=== PATIENT | female | born 2005 | race Caucasian/White ===

== ENCOUNTER 2023-03-24 15:11 | Emergency (ER) | payer BC, SELFPAY ==
--- NOTE | ~2023-03-24 | CT_ITS ---
EXAMINATION: CT abdomen pelvis w con DATE: 03/24/2023 18:43 INDICATION: Right lower quadrant abdominal tenderness. TECHNIQUE: Computed tomography (CT) of the abdomen and pelvis was performed with 100 mL Omnipaque 350 intravenous contrast. Automated exposure control and iterative reconstruction technique were employe d. The dose-length product was 207.03 mGy-cm. COMPARISON: None. FINDINGS: The visualized portions of the lung bases are clear without pneumonia or pleural effusion. The heart size is normal. No pericardial effusion. The liver, gallbladder, spleen, pancreas, adrenal glands, and kidneys are normal. There is a 3.7 cm mass in right ovary measuring greater than simple f luid in attenuation. There are no dilated loops of bowel. The appendix is normal. There are no pathol ogically enlarged lymph nodes. There is physiologic fluid in the pelvis. There is thoracolumbar levos coliosis. IMPRESSION: 1. 3.7 cm mass in right ovary, likely a hemorrhagic cyst. Consider ultrasound. Reviewed, dictated and finalized at location E.
[2023-03-24 15:30] VITALS: BP 100/58; PULSE 68; RESP 16; TEMP 36.4; O2SAT 98
--- NOTE | 2023-03-24 15:45 | ED.GENADULT ---
HPI - General Adult General Chief complaint: Abdominal Pain <Chely Lama October, - Last Filed: 03/24/23 15:47> Stated complaint: abdominal pain since yesterday <Chely Lama October, - Last Filed: 03/24/23 15:47> Time Seen by Provider: 03/24/23 17:39 <Chely Lama October, - Last Filed: 03/24/23 15:47> History of Present Illness HPI narrative: Terri Francois is a 18 y/o female who presents with reports of having mid umbilical pain that moves across her lower abdomen that started yesterday evening, She states that it started with some rectal pain and then moved to her lower abdomen, no nausesa/ vomiting/ last normal BM was yesterday. She last ate about 30 minutes ago and feels that might of kind of helped her pain. Currently rates pain at a 4/10 Denies fever/chills <Chely Lama October, - Last Filed: 03/24/23 15:47> Related Data Home medications: Home Medications Medication Instructions Recorded Confirmed spironolactone 50 mg tablet 50 mg PO DAILY 01/17/22 01/17/22 <Chely Lama October, - Last Filed: 03/24/23 15:47> Allergies/adverse reactions: Allergies Allergy/AdvReac Type Severity Reaction Status Date / Time No Known Allergies Allergy Verified 03/24/23 15:11 <Chely Lama October, - Last Filed: 03/24/23 15:47> Review of Systems Review of Systems: All systems as dictated in HPI <Milo Ha PA-C - Last Filed: 03/25/23 01:46> [facility] Past Medical History Medical History: Medical History (Updated 03/25/23 @ 00:00 by Holly Lassiter) Acute sinusitis URI (upper respiratory infection) <Chely Lama October, - Last Filed: 03/24/23 15:47> Surgical History Surgical History: Surgical History (Updated 01/22/23 @ 08:09 by Sheila Costello [facility]) No history of previous surgery <Chely Lama October,N - Last Filed: 03/24/23 15:47> Family History Family History: Family History Grandparent Breast cancer <Chely Lama October, PAINTING MANAGER - Last Filed: 03/24/23 15:47> Social History Social History: Social History (Updated 01/22/23 @ 08:13 by Sheila Costello [facility]) Smoking status: Never smoker Alcohol intake: never Substance use: never Lack of Transportation: No Lack of Food: Never True Current Housing: I Have Housing Concerned About Future Housing: No Difficulty Paying Gas/Electric Bills: No Difficulty Paying for Meds: No Currently Unemployed: No Education: High School Diploma/GED Difficulty w/ Childcare or Family Care: No Living arrangements: with family Occupation/Education: student <Chely Lama October, - Last Filed: 03/24/23 15:47> Exam Narrative: GENERAL: Well-appearing, well-nourished, and in no acute distress. HEAD: Normocephalic, atraumatic. EYES: PERRLA and EOMI. ENT: Nares clear, no rhinorrhea or epistaxis. Mucous membranes moist. Oropharynx without tonsillar hypertrophy exudate or other lesions. NECK: Supple. No adenopathy or masses. CHEST: No respiratory distress. Clear to auscultation. No wheezes rales or rhonchi HEART: Regular rate and rhythm. No murmur heard. Normal peripheral pulses. ABDOMEN: Right lower quadrant tenderness present. Soft, otherwise nontender, nondistended, normal active bowel sounds. Negative peritoneal signs MSK: Normal range of motion. No edema. SKIN: Warm, dry, no rash. NEURO: Alert and oriented x3. No focal deficits. PSYCH: Normal mood and affect. <Milo Ha PA-C - Last Filed: 03/25/23 01:46> Course Vital Signs Vital signs: Vital Signs Temperature 97.5 F L 03/24/23 15:30 Pulse Rate 68 03/24/23 15:30 Respiratory Rate 16 03/24/23 15:30 Blood Pressure 100/58 L 03/24/23 15:30 Pulse Oximetry 98 03/24/23 15:30 Oxygen Delivery Room Air 03/24/23 15:30 Temperature 97.5 F L 03/24/23 15:30 Pulse Rate 68 10/17/23 15:30 Respiratory Rate 16 03/24/23 15:30 Blood Pressure 100/58 L 03/24/23 15:30 Puls
[2023-03-24 15:47] LABS: Basophils Percent Auto 0.3 % (0.2-1.2); Eosinophils Absolute Auto 0.1 K/mm3 (0-0.3); Eosinophils Percent Auto 0.6 % (0-4.4); Hematocrit 39.9 % (37.0-47.0); Hemoglobin 13.2 g/dL (12.0-15.0); Immature Granulocyte Absolute 0.02 K/mm3 (0.00-0.031); Immature Granulocyte Percent A 0.3 % (0-0.5); Lymphocytes Absolute Auto 1.27 K/mm3 (0.9-3.2); Mean Corpuscular HGB Conc 33.1 g/dl (32-36); Mean Corpuscular Hemoglobin 31.9 pg (26-34); Mean Corpuscular Volume 96.4 fl (80-100); Monocytes Absolute Auto 0.4 K/mm3 (0.1-0.6); Monocytes Percent Auto 5.5 % (2.6-8.5); Neutrophils Absolute Auto 6.1 K/mm3 (1.3-6.7); Neutrophils Percent Auto 77.3 % (45.5-73.1); Platelet Count Result 210 k/mm3 (150-375); Red Blood Count 4.14 M/mm3 (4.2-5.4); Red Cell Distribution Width 12.3 % (11.5-14.5); White Blood Count 7.9 K/mm3 (4.5-10.0)
[2023-03-24 15:54] LABS: Appearance Urine Cloudy (Clear); Bacteria Urine 1+ /hpf; Bilirubin Urine Negative (Negative); Blood Urine Trace (Negative); Color Urine Yellow (Yellow); Glucose Urine UA Negative (Negative); Ketones Urine Negative (Negative); Leukocyte Esterase Ur 2+ LEU/UL (Negative); Nitrate Urine Negative (Negative); Non Pathogenic Casts 0-2; Protein Urine Negative (Negative); RBC Urine 0-2 /hpf (0-2); Specific Grav Ur 1.012 (1.001-1.035); Squamous Epithelial Cell Urine Moderate /hpf (Few); Urobilinogen Urine 0.2 mg/dL (<2.0); WBC Urine 21-50 /hpf; pH Urine 5.5 (5.0-9.0)
[2023-03-24 15:56] LABS: Alanine Aminotransferase 17 U/L (6-35); Albumin Level 4.4 g/dL (3.5-5.1); Alkaline Phosphatase 68 U/L (38-126); Anion Gap 8 mmol/L (8-16); Aspartate Amino Transferase 22 U/L (14-36); Blood Urea Nitrogen 14 mg/dL (7-17); Carbon Dioxide 28 mmol/L (22-30); Chloride 100 mmol/L (98-107); Estimated CRCL calculation 73 ml/min; Estimated Glomerular Filt Rate > 60; Glucose 153 mg/dL (65-110); Lipase 55 U/L (23-300); Sodium 136 mmol/L (137-145)
[2023-03-24 16:22] LABS: Add Urine Microscopic? YES
== END 2023-03-24 19:31 | disposition home or self-care (01) ==
PROVIDERS: Nurse Practitioner Family; Emergency Provider Physician Assistant; PCP Family Medicine
DX: N83.201 Unspecified ovarian cyst, right side (principal)
CPT/HCPCS: 36415; 74177; 80053; 81001; 81025; 83690; 85025; 87086; 99284; Q9967

== ENCOUNTER 2023-05-03 20:45 | Emergency (ER) | payer BC, SELFPAY ==
[2023-05-03 20:48] VITALS: BP 112/69; PULSE 82; RESP 18; TEMP 36.6; O2SAT 100
--- NOTE | 2023-05-03 21:34 | PC.NURSE ---
Pelvic exam setup at bedside. Bre, EDP aware.
--- NOTE | 2023-05-03 21:59 | ED.SKABFB ---
HPI - Skin/Abscess/Foreign Bdy General Chief complaint: Skin/Abscess/Foreign Body Stated complaint: forgein object in vagina Time Seen by Provider: 05/03/23 21:06 History of Present Illness HPI narrative: 18-year-old female reports for evaluation for concern for tampon in her vagina x2 days. Patient states she started her period approximately 5-6 days ago has been using tampons. States she put a tampon 2 days ago is unsure if she took it out. States since then, she has inserted more tampons and has been taking them out. She denies abdominal pain, nausea vomiting, fever, rashes, urinary complaints, vaginal discharge, concern for STDs. Her period has since stopped. Related Data Home Medications Medication Instructions Recorded Confirmed spironolactone 50 mg tablet 50 mg PO DAILY 01/17/22 01/17/22 Allergies Allergy/AdvReac Type Severity Reaction Status Date / Time No Known Allergies Allergy Verified 05/03/23 21:10 Review of Systems Review of Systems: CONSTITUTIONAL: Denies fever, chills, or sweats. EYES: Denies visual changes, redness, or discharge. ENT: Denies rhinorrhea, congestion, sore throat, or otalgia. CARDIOVASCULAR: Denies chest pain, palpitations, or edema. RESPIRATORY: Denies cough or dyspnea. GASTROINTESTINAL: Denies abdominal pain, nausea, vomiting, or diarrhea. GENITOURINARY: See HPI SKIN: Denies rash or itching. MUSCULOSKELETAL: Denies back pain, joint pain, or myalgia. NEUROLOGIC: Denies headache, numbness, or weakness. PSYCHIATRIC: Denies anxiety or depression. [facility] Past Medical History Medical History Acute sinusitis URI (upper respiratory infection) Surgical History Surgical History No history of previous surgery Family History Family History Grandparent Breast cancer Social History Social History Smoking status: Never smoker Alcohol intake: never Substance use: never Lack of Transportation: No Lack of Food: Never True Current Housing: I Have Housing Concerned About Future Housing: No Difficulty Paying Gas/Electric Bills: No Difficulty Paying for Meds: No Currently Unemployed: No Education: High School Diploma/GED Difficulty w/ Childcare or Family Care: No Living arrangements: with family Occupation/Education: student Exam Narrative: GENERAL: Well-appearing, well-nourished, and in no acute distress. HEAD: Normocephalic, atraumatic. EYES: PERRLA and EOMI. ENT: Nares clear, no rhinorrhea or epistaxis. Mucous membranes moist. NECK: Supple. CHEST: Clear to auscultation. No respiratory distress. HEART: Regular rate and rhythm. No murmur heard. Normal peripheral pulses. ABDOMEN: Soft, nontender, nondistended, normal active bowel sounds. no CVA tenderness. : Normal external Genitalia without edema, rashes. Scant amount of physiologic discharge in the vaginal vault. No tampon or foreign body visualized. Cervical os closed without rashes or lesions. No malodor. EXTREMITIES: Normal range of motion. No edema. SKIN: Warm, dry, no rash. NEURO: No focal deficits. Alert and oriented x3 Course Vital Signs Vital signs: Vital Signs Temperature 97.9 F 05/03/23 20:48 Pulse Rate 82 05/03/23 20:48 Respiratory Rate 18 05/03/23 20:48 Blood Pressure 112/69 05/03/23 20:48 Pulse Oximetry 100 05/03/23 20:48 Oxygen Delivery Room Air 05/03/23 20:48 Temperature 97.9 F 05/03/23 20:48 Pulse Rate 82 05/03/23 20:48 Respiratory Rate 18 05/03/23 20:48 Blood Pressure 112/69 05/03/23 20:48 Pulse Oximetry 100 05/03/23 20:48 Oxygen Delivery Room Air 05/03/23 20:48 MDM - Skin/Abscess/Foreign Bdy MDM Narrative Medical decision making narrative: 18-year-old female reports to emergen
== END 2023-05-03 22:15 | disposition home or self-care (01) ==
PROVIDERS: Emergency Provider Physician Assistant; PCP Family Medicine
DX: Z03.823 Encounter for observation for suspected inserted (injected) foreign body ruled out (principal)
CPT/HCPCS: 99282